=== PATIENT | female | born 1965 | race African-American/Black ===

== ENCOUNTER 2020-11-23 17:55 | Emergency (ER) | payer OTHER ==
[~2020-11-23] VITALS: Ht 154.9 cm; Wt 72.6 kg
[2020-11-23] MEDS ORDERED: ACETAMINOPHEN 325 MG TAB PO ONE (18:45)
[2020-11-23] MEDS ORDERED: ATORVASTATIN CA20 MG PO (19:05)
[2020-11-23] MEDS ORDERED: METFORMIN HCL500 MG PO (19:05)
[2020-11-23] MEDS ORDERED: LEVOTHYROXINE75 MCG PO (19:05)
[2020-11-23] MEDS ORDERED: ACETAMINOPHEN 325 MG TAB ONE (19:12)
[2020-11-23 19:32] VITALS: BP 103/57
== END 2020-11-23 19:33 | disposition home or self-care (01) ==
LOC: FSED 18:12
DX: R05 Cough (principal); J06.9 Acute upper respiratory infection, unspecified
CPT/HCPCS: 99282